=== PATIENT | male | born 1960 | race Caucasian/White ===

== ENCOUNTER 2020-08-31 11:49 | Emergency (ER) | payer MEDICARE ==
[2020-08-31 12:16] VITALS: BP 128/83; PULSE 67
--- NOTE | 2020-08-31 12:50 | EDM.PDOC ---
ED HPI GENERAL MEDICAL PROBLEM - General Chief Complaint: Lower Extremity Injury/Pain Stated Complaint: PAIN LT SIDE BETWEEN LEG Time Seen by Provider: 08/31/20 12:48 Source of Information: Reports: Patient, Family, RN Notes Reviewed History Limitations: Reports: No Limitations - History of Present Illness INITIAL COMMENTS - FREE TEXT/NARRATIVE: 60-year-old gentleman presents emergency department with a complaint of left hip pain, he states he fell about a month ago was hoping it would improve but it continues to have pain and difficulty ambulating he has not been evaluated thus far no numbness and tingling in the toes - Related Data Allergies Allergy/AdvReac Type Severity Reaction Status Date / Time No Known Allergies Allergy Verified 08/31/20 12:15 Home Meds: Home Meds FLUoxetine [PROzac] 40 tab PO DAILY 08/30/14 [History] [place] Carbonate [[place] Carbonate ER] 2 tab PO DAILY 08/30/14 [History] Past Medical History HEENT History: Reports: Impaired Vision Cardiovascular History: Reports: Hypertension Gastrointestinal History: Reports: Chronic Diarrhea Musculoskeletal History: Reports: Gout Psychiatric History: Reports: Anxiety, Depression Dermatologic History: Reports: None - Infectious Disease History Infectious Disease History: Reports: Measles - Past Surgical History Head Surgeries/Procedures: Reports: None Cardiovascular Surgical History: Reports: None Musculoskeletal Surgical History: Reports: Other (See Below) Other Musculoskeletal Surgeries/Procedures:: right wrist Dermatological Surgical History: Reports: Skin Graft Social & Family History - Tobacco Use Tobacco Use Status *Q: Former Tobacco User Used Tobacco, but Quit: Yes Month/Year Tobacco Last Used: 06/2020 Second Hand Smoke Exposure: No - Caffeine Use Caffeine Use: Reports: Soda - Recreational Drug Use Recreational Drug Use: No Review of Systems - Review of Systems Review Of Systems: See Below Musculoskeletal: Reports: Joint Pain (Left hip pain) ED EXAM, GENERAL - Physical Exam Exam: See Below Free Text/Narrative:: Examination left hip I do not appreciate any erythema there is no edema there is no bruising noted he does have difficulty with ambulation I cannot elicit a point tenderness there is no particular tenderness to flexion extension rotation the tenderness seems to be greatest when he bears weight Exam Limited By: No Limitations General Appearance: Alert, WD/WN, No Apparent Distress Course - Vital Signs Last Recorded V/S: Last Vital Signs Temp 97.5 F 08/31/20 12:26 Pulse 67 08/31/20 12:26 Resp 16 08/31/20 12:26 BP 128/83 08/31/20 12:26 Pulse Ox 97 08/31/20 12:26 Departure - Departure Time of Disposition: 16:00 Disposition: Home, Self-Care 01 Condition: Fair Clinical Impression: Closed fracture of single pubic ramus of pelvis Qualifiers: Encounter type: initial encounter Laterality: left Qualified Code(s): S32.592A - Other specified fracture of left pubis, initial encounter for closed fracture - Discharge Information Instructions: Simple Pelvic Fracture, Adult Referrals: Tiffanie Son PA [Primary Care Provider] - Forms: ED Department Discharge Additional Instructions: Use Tylenol or Motrin as needed for baseline pain control, use hydrocodone for breakthrough pain, recommend contacting your primary care physician for referral to physical therapy and walker, call return to the emergency department worsening symptoms Sepsis Event Note (ED) - Evaluation Sepsis Screening Result: No Definite Risk - Focused Exam Vital Signs: Vital Signs Temp Pulse Resp BP Pulse Ox 08/31/20 12:26 97.5 F 67 16 128/83 97 08/31/20 12:15 97.5 F 67 16 128/83 97 - Assessment/Plan Plan: Assessment Acuity = acute Site and laterality = pelvic rami fracture healing left Etiology = secondary to fall Manifestations = none Location of injury = Home Lab values = x-ray was questionable CT scanning confirms a fracture described above Plan Prescription written for hydrocodone 5/325 1 tab p.o. 3 times daily as needed total #10 follow-up primary care request referral to physical therapy for further evaluation This note was dictated using [employer] voice recognition software please call with any questions on syntax or grammar.
--- NOTE | 2020-08-31 13:22 | CR ---
Hip Min 2V or 3V w Pelvis Lt CLINICAL HISTORY: Pain FINDINGS: There is some mild irregularity in the inferior pubic ramus on the left with some minimal cortical disruption. This is felt to represent a nondisplaced the fracture. Chronology is uncertain. Joint spaces are maintained. Articular surfaces are smooth. IMPRESSION: Previous nondisplaced fracture of the left inferior pubic ramus of uncertain chronology. Acute fracture is not excluded. Hips appear intact
--- NOTE | 2020-08-31 15:44 | CT ---
Hip wo Cont Lt CLINICAL HISTORY: Pain PROCEDURE: Thin section axial tomographic images are obtained through the left hip joint without IV contrast enhancement. The sagittal and coronal images were reconstructed. FINDINGS: There is some mild osteoarthritic change with subcortical cyst formation in the left acetabulum. Femur appears intact. Joint spaces are maintained. There is a nondisplaced fracture through the left inferior pubic ramus. There appears to be some callus formation remain in the pelvis appears intact. No soft tissue abnormality is identified. Pelvic side jarquin are clear IMPRESSION: Previous nondisplaced fracture through the left inferior pubic ramus with some callus formation. Patient states a history of previous trauma approximately 1 month ago. Findings would correlate with this chronology
== END 2020-08-31 16:07 | disposition home or self-care (01) ==
LOC: JP.ED 11:49
DX: S32.592A Other specified fracture of left pubis, initial encounter for closed fracture (principal); I10 Essential (primary) hypertension; Z79.899 Other long term (current) drug therapy; Z87.891 Personal history of nicotine dependence; W19.XXXA Unspecified fall, initial encounter
CPT/HCPCS: 73502-26-LT; 73502-LT; 73700-26-LT; 73700-LT; 99283; 99284-25

== ENCOUNTER 2021-02-09 21:01 | Emergency (ER) | payer OTHER, MEDICARE ==
--- NOTE | 2021-02-09 21:19 | EDM.PDOC ---
ED HPI GENERAL MEDICAL PROBLEM - General Chief Complaint: Head Injury Stated Complaint: HEAD LACERATION Time Seen by Provider: 02/09/21 21:13 Source of Information: Reports: Patient History Limitations: Reports: No Limitations - History of Present Illness INITIAL COMMENTS - FREE TEXT/NARRATIVE: Kailash is a 60-year-old male brought in by his son for evaluation of a head injury. EMS had called to alert us that the patient apparently had fallen in his yard and struck his head on a rock. He has significant abrasions and laceration to his left forehead and eyebrow. EMS reported the patient was fairly obstinate and refused to go by ambulance so his son brought him in for evaluation. He denies any loss of consciousness. He is not acting his baseline at this time according to the son. He denies any nausea or vomiting, vision changes, numbness or tingling, or weakness. Patient did walk-in. - Related Data Allergies Allergy/AdvReac Type Severity Reaction Status Date / Time No Known Allergies Allergy Verified 02/09/21 21:14 Home Meds: Home Meds FLUoxetine [PROzac] 40 tab PO DAILY 08/30/14 [History] [place] Carbonate [[place] Carbonate ER] 2 tab PO DAILY 08/30/14 [History] Past Medical History HEENT History: Reports: Impaired Vision Cardiovascular History: Reports: Hypertension Gastrointestinal History: Reports: Chronic Diarrhea Musculoskeletal History: Reports: Gout Psychiatric History: Reports: Anxiety, Depression Dermatologic History: Reports: None - Infectious Disease History Infectious Disease History: Reports: Measles - Past Surgical History Head Surgeries/Procedures: Reports: None Cardiovascular Surgical History: Reports: None Musculoskeletal Surgical History: Reports: Other (See Below) Other Musculoskeletal Surgeries/Procedures:: right wrist Dermatological Surgical History: Reports: Skin Graft Social & Family History - Caffeine Use Caffeine Use: Reports: Soda ED ROS GENERAL - Review of Systems Review Of Systems: See Below Constitutional: Reports: No Symptoms HEENT: Reports: Other (Abrasions and lacerations to the left forehead, eyebrow, and lower eyelid.) Respiratory: Reports: No Symptoms Cardiovascular: Reports: No Symptoms Endocrine: Reports: No Symptoms GI/Abdominal: Reports: No Symptoms : Reports: No Symptoms Musculoskeletal: Reports: No Symptoms Skin: Reports: Wound (Abrasions and laceration to the left forehead, eyebrow, and eyelid.) Neurological: Reports: Confusion, Other (According to the son, the patient is acting a little off.). Denies: Headache, Difficulty Walking Psychiatric: Reports: No Symptoms Hematologic/Lymphatic: Reports: No Symptoms Immunologic: Reports: No Symptoms ED EXAM, HEAD INJURY - Physical Exam Exam: See Below Exam Limited By: No Limitations General Appearance: Alert, Mild Distress Head: Facial Abrasions (Left forehead), Facial Ecchymosis (Left periorbital space), Facial Lacerations (Left eyebrow and eyelid), Facial Tenderness (Left forehead and eyebrow) Eyes: Bilateral Eye: EOMI, PERRL Ears: Normal External Exam, Normal Canal, Hearing Grossly Normal, Normal TMs Nose: Normal Inspection, Normal Mucousa, No Blood Throat/Mouth: Normal Inspection, Normal Lips, Normal Oropharynx, Normal Voice, Other (Very poor dentition) Neck: Non-Tender, Full Range of Motion. No: Tender Lateral, Tender Midline Respiratory: No Respiratory Distress, Lungs Clear, Normal Breath Sounds Cardiovascular: Normal Peripheral Pulses, Regular Rate, Rhythm, No Murmur Back Exam: Normal Inspection, Full Range of Motion Extremities: Normal Inspection, Normal Range of Motion, Normal Capillary Refill Neurologic: substance abuse therapist II-XII nml As Tested, No Motor/Sensory Deficits, Alert, Depressed Affect - Jaskaran Coma Score Best Eye Response (Jaskaran): (4) Open Spontaneously Best Verbal Response (Mccarley): (5) Oriented Best Motor Response (Mccarley): (6) Obeys Commands Mccarley Total: 15 ED LACERATION/WOUND & BEN PROC - Laceration/Wound Repair Left Face Lac/wound length in cm: 2.1 Appearance: Superficial Distal NVT: Neuro & Vascular Intact Exploration/Debridement/Repair: Wound Explored, In a Bloodless Field, Explored to Base Closed with: Wound Adhesive Complications: No Course - Vital Signs Last Recorded V/S: Last Vital Signs Temp 36.4 C 02/09/21 21:18 Pulse 87 02/09/21 21:45 Resp 11 L 02/09/21 21:45 BP 128/85 02/09/21 21:45 Pulse Ox 99 02/09/21 21:45 - Orders/Labs/Meds Orders: Active Orders 24 hr Category Date Time Status Head wo Cont [CT] Stat Exams 02/09/21 21:13 Taken Labs: Laboratory Tests 02/09/21 02/09/2121 Range/Units 21:23 21:23 21:23 WBC 6.5 (4.5-11.0) K/uL RBC 4.21 L (4.30-5.90) M/uL Hgb 13.9 (12.0-15.0) g/dL Hct 40.8 (40.0-54.0) % MCV 97 (80-98) fL MCH 33 H (27-31) pg MCHC 34 (32-36) % Plt Count 208 (150-400) K/uL Neut % (Auto) 58.9 (36-66) % Lymph % (Auto) 30.2 (24-44) % Warrick % (Auto) 4.5 (2-6) % Eos % (Auto) 5.6 H (2-4) % Baso % (Auto) 0.8 (0-1) % PT 10.9 (9.5-12.0) sec INR 1.00 (0.80-1.20) APTT 24.5 L (27.0-36.0) sec Sodium 140 (140-148) mmol/L Potassium 3.8 (3.6-5.2) mmol/L Chloride 105 (100-108) mmol/L Carbon Dioxide 22 (21-32) mmol/L Anion Gap 13.2 (5.0-14.0) mmol/L BUN 13 (7-18) mg/dL Creatinine 1.2 (0.8-1.3) mg/dL Est Cr Clr Drug Dosing 58.69 mL/min Estimated GFR (MDRD) > 60 (>60) Glucose 96 (74-106) mg/dL Calcium 8.6 (8.5-10.1) mg/dL Total Bilirubin 1.0 D (0.2-1.0) mg/dL AST 41 H D (15-37) U/L ALT 47 D (12-78) U/L Alkaline Phosphatase 173 H (46-116) U/L Total Protein 7.4 (6.4-8.2) g/dL Albumin 3.4 (3.4-5.0) g/dL Globulin 4.0 H (2.3-3.5) g/dL Albumin/Globulin Ratio 0.9 L (1.2-2.2) Ethyl Alcohol mg/dL 02/09/21 Range/Units 21:23 WBC (4.5-11.0) K/uL RBC (4.30-5.90) M/uL Hgb (12.0-15.0) g/dL Hct (40.0-54.0) % MCV (80-98) fL MCH (27-31) pg MCHC (32-36) % Plt Count (150-400) K/uL Neut % (Auto) (36-66) % Lymph % (Auto) (24-44) % Warrick % (Auto) (2-6) % Eos % (Auto) (2-4) % Baso % (Auto) (0-1) % PT (9.5-12.0) sec INR (0.80-1.20) APTT (27.0-36.0) sec Sodium (140-148) mmol/L Potassium (3.6-5.2) mmol/L Chloride (100-108) mmol/L Carbon Dioxide (21-32) mmol/L Anion Gap (5.0-14.0) mmol/L BUN (7-18) mg/dL Creatinine (0.8-1.3) mg/dL Est Cr Clr Drug Dosing mL/min Estimated GFR (MDRD) (>60) Glucose (74-106) mg/dL Calcium (8.5-10.1) mg/dL Total Bilirubin (0.2-1.0) mg/dL AST (15-37) U/L ALT (12-78) U/L Alkaline Phosphatase (46-116) U/L Total Protein (6.4-8.2) g/dL Albumin (3.4-5.0) g/dL Globulin (2.3-3.5) g/dL Albumin/Globulin Ratio (1.2-2.2) Ethyl Alcohol 315 mg/dL - Radiology Interpretation Free Text/Narrative:: I reviewed the patient's CT of the head without contrast showing no acute intracranial abnormalities including hemorrhage, mass, or midline shift. There are no acute cranial abnormalities including fracture. The patient does have chronic left sphenoid sinusitis. - Re-Assessments/Exams Free Text/Narrative Re-Assessment/Exam: 02/09/21 22:[address] of the head without contrast. There is no evidence for acute intracranial hemorrhage, mass, or midline shift. There is no cranial abnormalities identified. I reviewed the patient's labs showing a leukocyte count of 6.5, hemoglobin of 13.9, hematocrit of 40.8, and platelet count of 208,000. Patient's PT is 10.9 with an INR of 1.0. The PTT is 24.5. The comprehensive metabolic panel is significant for sodium 140, potassium 3.8, chloride of 105, bicarbonate of 22, BUN of 13 with a creatinine 1.2. Glucose is 96. AST is mildly elevated at 41 with an ALT of 47. Patient's ethanol level is 315. The wounds to the face are one small gouge above the eyebrow that is not actively bleeding. We will seal this with Dermabond. 02/09/21 22:17 Tdap was boosted today. Departure - Departure Time of Disposition: 22:15 Disposition: Home, Self-Care 01 Clinical Impression: Head injury Qualifiers: Encounter type: initial encounter Qualified Code(s): S09.90XA - Unspecified injury of head, initial encounter Alcohol intoxication Qualifiers: Complication of substance-induced condition: uncomplicated Qualified Code(s): F10.920 - Alcohol use, unspecified with intoxication, uncomplicated Abrasion of forehead Qualifiers: Encounter type: initial encounter Qualified Code(s): S00.81XA - Abrasion of other part of head, initial encounter Abrasion of eyelid, left Qualifiers: Encounter type: initial encounter Qualified Code(s): S00.212A - Abrasion of left eyelid and periocular area, initial encounter - Discharge Information Instructions: Head Injury, Adult, Abrasion, [id number] Referrals: PCP,None [Primary Care Provider] - Forms: ED Department Discharge Care Plan Goals: Your work-up is unremarkable for any focal neurologic findings. You did sustain a deep abrasion to the left forehead and lower eyelid. These were closed with Dermabond. The Dermabond will wear off just like a scab. Please do not pick at it. You may shower and submerge her head in water as needed. You likely did suffer a mild concussion from the injury. Try to take it easy over the next day or 2 until the headache is gone. In addition, you are significantly intoxicated which may have contributed to your fall. Return to the ED should you start developing any worsening of a headache, nausea or vomiting, or sudden onset of weakness or numbness. Sepsis Event Note (ED) - Focused Exam Vital Signs: Vital Signs Temp Pulse Resp BP Pulse Ox 02/09/21 21:45 87 11 L 128/85 99 02/09/21 21:18 36.4 C 95 17 143/101 H 99 02/09/21 21:15 36.4 C 95 17 143/101 H 99 - Problem List & Annotations (1) Abrasion of eyelid, left SNOMED Code(s): 76512066195959189 Code(s): S00.212A - ABRASION OF LEFT EYELID AND PERIOCULAR AREA, INIT ENCNTR Status: Acute Priority: High Current Visit: Yes Qualifiers: Encounter type: initial encounter Qualified Code(s): S00.212A - Abrasion of left eyelid and periocular area, initial encounter (2) Abrasion of forehead SNOMED Code(s): 489869256 Code(s): S00.81XA - ABRASION OF OTHER PART OF HEAD, INITIAL ENCOUNTER Status: Acute Priority: High Current Visit: Yes Qualifiers: Encounter type: initial encounter Qualified Code(s): S00.81XA - Abrasion of other part of head, initial encounter (3) Alcohol intoxication SNOMED Code(s): 30053303 Code(s): F10.929 - ALCOHOL USE, UNSPECIFIED WITH INTOXICATION, UNSPECIFIED Status: Acute Priority: High Current Visit: Yes Qualifiers: Complication of substance-induced condition: uncomplicated Qualified Code (s): F10.920 - Alcohol use, unspecified with intoxication, uncomplicated (4) Head injury SNOMED Code(s): 51991623 Code(s): S09.90XA - UNSPECIFIED INJURY OF HEAD, INITIAL ENCOUNTER Status: Acute Priority: High Current Visit: Yes Qualifiers: Encounter type: initial encounter Qualified Code(s): S09.90XA - Unspecified injury of head, initial encounter - Problem List Review Problem List Initiated/Reviewed/Updated: Yes - My Orders Last 24 Hours: My Active Orders 02/09/21 21:13 Head wo Cont [CT] Stat - Assessment/Plan Last 24 Hours: My Active Orders 02/09/21 21:13 Head wo Cont [CT] Stat
[2021-02-09 21:45] VITALS: BP 128/85; PULSE 87
[2021-02-09] MEDS ORDERED: Diphtheria,Pertussis(Acell),Tetanus Vaccine 0.5 ML Syringe IM ONE (22:18)
--- NOTE | 2021-02-09 22:19 | CRLCT ---
For Patients: As a result of the Century Cures Act, medical imaging exams and procedure reports are released immediately into your electronic medical record. You may view this report before your referring provider. If you have questions, please contact your health care provider. INDICATION: Pain after head injury. ETOH. COMPARISON: 10/08/2013. TECHNIQUE: CT examination of the head was performed with 3 and 2 mm thick axial and 2 mm thick coronal and sagittal sections without intravenous contrast. Images were obtained from the vertex of the skull through the skull base, and I examined the images with the brain and bone windows. Please note that all CT scans at this facility use dose modulation, iterative reconstruction, and/or weight-based dosing when appropriate to reduce radiation dose to as low as reasonably achievable. FINDINGS: : The brain is normal in appearance for the patient`s age on today`s study, with no sign of mass lesion, mass effect, hemorrhage, or edema. There is increased dilatation of the ventricles, now moderate, also with increased dilatation of the sulci, now mild. The findings are that of progressive central atrophy consistent with the patient`s age. The visualized portions of the orbits are normal in appearance. There is prominent opacification of the visualized superior right maxillary sinus, not included on the previous study. The findings are that of severe acute or chronic sinusitis. There is mild mucosal thickening of the superior portion of the left maxillary sinus, in a region not included on the previous study. This is consistent with mild chronic sinusitis. The rest of the visualized portions of the paranasal sinuses and mastoids are clear. The osseous structures are normal in their appearance with no sign of abnormality in the skull base or calvarium. IMPRESSION: No sign of closed head injury. Progressive central atrophy, now moderate, consistent with patient`s age. Severe right maxillary sinusitis, acute versus chronic. Mild chronic left maxillary sinusitis. Please note that all CT scans at this facility use dose modulation, iterative reconstruction, and/or weight-based dosing when appropriate to reduce radiation dose to as low as reasonably achievable. Dictated by Fam Jenkins MD @ 02/09/2021 10:16:[address] Fam eJnkins @ Feb 09 2021 10:16PM
== END 2021-02-09 22:40 | disposition home or self-care (01) ==
LOC: JP.ED 21:01
DX: S01.112A Laceration without foreign body of left eyelid and periocular area, initial encounter (principal); F10.129 Alcohol abuse with intoxication, unspecified; I10 Essential (primary) hypertension; Z23 Encounter for immunization; W18.09XA Striking against other object with subsequent fall, initial encounter
CPT/HCPCS: 12011; 36415; 70450; 80053; 80307; 85025; 85610; 85730; 90471; 90715; 99284-25

== ENCOUNTER 2021-04-08 18:53 | Emergency (ER) | payer MEDICARE, OTHER ==
[2021-04-08 19:21] VITALS: BP 95/69; PULSE 95
--- NOTE | 2021-04-08 19:53 | EDM.PDOC ---
ED HPI GENERAL MEDICAL PROBLEM - General Chief Complaint: Respiratory Problem Stated Complaint: COVID SYMPTOMS Time Seen by Provider: 04/08/21 19:22 Source of Information: Reports: Patient, RN Notes Reviewed History Limitations: Reports: No Limitations - History of Present Illness INITIAL COMMENTS - FREE TEXT/NARRATIVE: 60-year-old gentleman presents emergency department day complaint of shortness of breath symptoms, he was recently diagnosed with COVID-19 approximately 5 days ago. States he had have symptoms about 4 days prior feeling short of breath cough yellow sputum production. He is mainly here for symptomatic relief. - Related Data Allergies Allergy/AdvReac Type Severity Reaction Status Date / Time No Known Allergies Allergy Verified 02/09/21 21:14 Home Meds: Home Meds FLUoxetine [PROzac] 40 tab PO DAILY 08/30/14 [History] [place] Carbonate [[place] Carbonate ER] 2 tab PO DAILY 08/30/14 [History] Albuterol Sulfate [Albuterol Sulfate Hfa] 18 gm IH Q4H PRN #1 [email or web address] 04/08/21 [Rx] Benzonatate [Tessalon Perle] 100 mg PO TID PRN #15 capsule 04/08/21 [Rx] Past Medical History HEENT History: Reports: Impaired Vision Cardiovascular History: Reports: Hypertension Gastrointestinal History: Reports: Chronic Diarrhea Musculoskeletal History: Reports: Fracture, Gout Neurological History: Reports: Concussion, Head Trauma Psychiatric History: Reports: Anxiety, Bipolar, Depression, PTSD Dermatologic History: Reports: None - Infectious Disease History Infectious Disease History: Reports: Measles, Novel Coronavirus - Past Surgical History Head Surgeries/Procedures: Reports: None Cardiovascular Surgical History: Reports: None Musculoskeletal Surgical History: Reports: Other (See Below) Other Musculoskeletal Surgeries/Procedures:: right wrist Dermatological Surgical History: Reports: Skin Graft Social & Family History - Family History Family Medical History: No Pertinent Family History - Tobacco Use Tobacco Use Status *Q: Never Tobacco User - Caffeine Use Caffeine Use: Reports: None - Recreational Drug Use Recreational Drug Use: No ED ROS GENERAL - Review of Systems Review Of Systems: See Below Constitutional: Reports: Fever, Chills, Fatigue HEENT: Reports: No Symptoms Respiratory: Reports: Shortness of Breath, Cough, Sputum Cardiovascular: Reports: Dyspnea on Exertion GI/Abdominal: Reports: No Symptoms ED EXAM, GENERAL - Physical Exam Exam: See Below Exam Limited By: No Limitations General Appearance: Alert, WD/WN, No Apparent Distress Respiratory/Chest: No Respiratory Distress, Lungs Clear, Normal Breath Sounds, No Accessory Muscle Use, Chest Non-Tender Cardiovascular: Regular Rate, Rhythm, No Murmur Course - Vital Signs Last Recorded V/S: Last Vital Signs Temp 97.8 F 04/08/21 19:20 Pulse 95 04/08/21 19:20 Resp 16 04/08/21 19:20 BP 95/69 04/08/21 19:20 Pulse Ox 95 04/08/21 19:20 Departure - Departure Time of Disposition: 19:52 Disposition: Home, Self-Care 01 Condition: Fair Clinical Impression: COVID-19 - Discharge Information Prescriptions: Albuterol Sulfate [Albuterol Sulfate Hfa] 18 gm IH Q4H PRN #1 [email or web address] PRN Reason: Dyspnea Benzonatate [Tessalon Perle] 100 mg PO TID PRN #15 capsule PRN Reason: Cough Instructions: COVID-19 Frequently Asked Questions, COVID-19: How to Protect Yourself and Others - [facility] Referrals: PCP,None [Primary Care Provider] - Additional Instructions: Continue with symptomatic care, please followup with your primary care provider in 3-5 days if not better, please call return to the emergency department with worsening of symptoms. Sepsis Event Note (ED) - Evaluation Sepsis Screening Result: No Definite Risk - Focused Exam Vital Signs: Vital Signs Temp Pulse Resp BP Pulse Ox 04/08/21 19:20 97.8 F 95 16 95/69 95 - Assessment/Plan Plan: Assessment Acuity = acute Site and laterality = viral syndrome Etiology = COVID-19 Manifestations = dyspnea, cough, sputum Location of injury = Home Lab values = none Plan Because his oxygen saturation was greater than 90% elected to treat empirically with symptomatic relief albuterol inhaler for shortness of breath and Tessalon Perles for cough he is to return to the emergency department if he becomes hypoxic, he declined monoclonal antibody therapy treatment This note was dictated using [employer] voice recognition software please call with any questions on syntax or grammar.
== END 2021-04-08 20:10 | disposition home or self-care (01) ==
LOC: JP.ED 18:53
DX: U07.1 COVID-19 (principal); I10 Essential (primary) hypertension; M10.9 Gout, unspecified; Z79.899 Other long term (current) drug therapy
CPT/HCPCS: 99284

== ENCOUNTER 2022-12-27 11:37 | Inpatient (IN) | payer OTHER, MEDICARE ==
[2022-12-27] MEDS ORDERED: HYDROmorphone 0.5 MG/0.5 ML Syringe IVPUSH ONE (12:30)
[2022-12-27] MEDS ORDERED: Sodium Chloride 0.9% 1,000 ML IV SCH (12:30)
[2022-12-27] MEDS ORDERED: Ondansetron 4 MG/2 ML SDV IVPUSH ONE (12:30)
[2022-12-27 12:47] LABS: HEMATOCRIT 41.7 % (38.4-49.7); HEMOGLOBIN 14.4 g/dL (12.9-16.9); MEAN CORPUSCULAR HEMOGLOBIN 34.3 pg (31.6-35.5); MEAN CORPUSCULAR HGB CONC 34.5 g/dL (31.6-35.5); MEAN CORPUSCULAR VOLUME 99.3 fL (81.4-99.0); RED BLOOD CELL COUNT 4.2 M/uL (4.14-5.76); WHITE BLOOD CELL COUNT,WBC 6.2 K/uL (3.2-11.0)
[2022-12-27 13:07] LABS: INR 1.1
[2022-12-27 13:14] LABS: A/G RATIO 0.8 (1.2-2.2); ALANINE AMINOTRANSFERASE,ALT 37 U/L (12-78); ALBUMIN 3.6 g/dL (3.4-5.0); ALKALINE PHOSPHATASE 111 U/L (46-116); ASPARTATE AMNIOTRANSFERASE,AST 32 U/L (15-37); BLOOD UREA NITROGEN,BUN 17 mg/dL (7-18); CALCIUM 9.1 mg/dL (8.5-10.1); CARBON DIOXIDE,CO2 21 mmol/L (21-32); CHLORIDE,CL 106 mmol/L (100-108); CREATININE 1.1 mg/dL (0.8-1.3); EST CRCL DRUG DOSING (CG) 63.64 mL/min; ESTIMATED GFR 76 mL/min (>60); GLUCOSE RANDOM 100 mg/dL (74-106); LIPASE 131 U/L (73-393); SODIUM,NA 135 mmol/L (140-148); TROPONIN I HIGH SENSITIVITY < 4.0 pg/mL (<=60.3)
[2022-12-27] MEDS ORDERED: Iopamidol 612 MG/ML 100 ML Bottle IV PRN (13:41)
[2022-12-27] MEDS ORDERED: Sodium Chloride 0.9% 10 ML SDV FLUSH ONE (13:41)
[2022-12-27] MEDS ORDERED: Sodium Chloride 0.9% 100 ML IV SCH (13:45)
[2022-12-27 14:01] LABS: APPEARANCE,URINE CLEAR (CLEAR); BILIRUBIN,URINE NEGATIVE (NEGATIVE); COLOR,URINE YELLOW (YELLOW); GLUCOSE,URINE NEGATIVE (NEGATIVE); KETONES,URINE NEGATIVE (NEGATIVE); LEUKOCYTE ESTERASE,URINE NEGATIVE (NEGATIVE); NITRITE,URINE NEGATIVE (NEGATIVE); OCCULT BLOOD,URINE NEGATIVE (NEGATIVE); PH,URINE 5.5 (5.0-8.0); PROTEIN,URINE NEGATIVE (NEGATIVE); UROBILINOGEN,URINE 0.2 EU/dL (0.2-1.0)
[2022-12-27 14:10] LABS: AMORPHOUS SEDIMENT,URINE NOT SEEN; AMPHETAMINES SCREEN, URINE NEGATIVE (NEGATIVE); BACTERIA,URINE FEW; EPITHELIAL CELLS,URINE NOT SEEN; METHAMPHETAMINES SCREEN, URINE NEGATIVE (NEGATIVE); MUCUS,URINE FEW; RBC,URINE 0-5 (0-5); THC SCREEN,URINE 50 NG/ML PRESUMPTIVE POSITIVE (NEGATIVE); WBC,URINE 0-5 (0-5)
[2022-12-27 14:11] LABS: BARBITURATE SCREEN,URINE NEGATIVE (NEGATIVE); BENZODIAZEPINES SCREEN,URINE NEGATIVE (NEGATIVE); METHADONE SCREEN, URINE NEGATIVE (NEGATIVE); OXYCODONE SCREEN,URINE NEGATIVE (NEGATIVE); PROPOXYPHENE SCREEN,URINE NEGATIVE (NEGATIVE)
[2022-12-27] MEDS ORDERED: Ondansetron 4 MG/2 ML SDV IV PRN (16:40)
[2022-12-27] MEDS ORDERED: Ondansetron 4 MG Tab.DIS PO PRN (16:40)
[2022-12-27] MEDS ORDERED: Acetaminophen 325 MG Tab PO PRN (16:40)
[2022-12-27] MEDS ORDERED: Magnesium Hydroxide 400 MG/5 ML Susp 30 ML Cup PO PRN (16:40)
[2022-12-27] MEDS ORDERED: Pantoprazole 40 MG Vial IV SCH (17:00)
[2022-12-27 17:22] LABS: MAGNESIUM 2.1 mg/dL (1.8-2.4); PHOSPHORUS 2.8 mg/dL (2.5-4.9)
[2022-12-27] MEDS: Dextrose 5%-0.45% NaCl 1,000 ML IV SCH (17:48)
[2022-12-27] MEDS: HYDROmorphone 0.5 MG/0.5 ML Syringe IVPUSH PRN (20:03)
[2022-12-27] MEDS ORDERED: Melatonin 3 MG Tab PO SCH (21:00)
[2022-12-28] MEDS: Dextrose 5%-0.45% NaCl 1,000 ML IV SCH (04:08)
[2022-12-28 04:51] LABS: HEMOGLOBIN 12.8 g/dL (12.9-16.9); MEAN CORPUSCULAR HEMOGLOBIN 34.1 pg (31.6-35.5); MEAN CORPUSCULAR HGB CONC 32.8 g/dL (31.6-35.5); RED BLOOD CELL COUNT 3.75 M/uL (4.14-5.76); WHITE BLOOD CELL COUNT,WBC 6.3 K/uL (3.2-11.0)
[2022-12-28 05:03] LABS: ANION GAP 8.7 mmol/L (5.0-14.0); CALCIUM 8.6 mg/dL (8.5-10.1); CREATININE 1.1 mg/dL (0.8-1.3); EST CRCL DRUG DOSING (CG) 63.64 mL/min; POTASSIUM,K 3.7 mmol/L (3.6-5.2)
[2022-12-28] MEDS: HYDROmorphone 0.5 MG/0.5 ML Syringe IVPUSH PRN (05:03)
[2022-12-28 05:20] LABS: HEMOGLOBIN A1C 5.2 % (4.5-6.2)
[2022-12-28] MEDS ORDERED: fentaNYL 100 MCG/2 ML SDV ONE (07:33)
[2022-12-28] MEDS ORDERED: Midazolam 1 MG/ML 2 ML SDV ONE (07:33)
[2022-12-28] MEDS ORDERED: Propofol 200 MG/20 ML SDV ONE (07:33)
[2022-12-28] MEDS ORDERED: Pantoprazole 40 MG Vial IVPUSH ONE (08:02)
[2022-12-28 08:58] VITALS: PULSE 76
[2022-12-28 10:50] VITALS: BP 110/75
== END 2022-12-28 10:55 | disposition home or self-care (01) | DRG 392 ==
LOC: JP.ED 11:37 → JP.MS 16:40
PROVIDERS: ADMIT Internal Medicine; ATTEND Internal Medicine
PROC: 0DC48ZZ Extirpation of Matter from Esophagogastric Junction, Via Natural or Artificial Opening Endoscopic (ICD-10-PCS; principal; 2022-12-28)
PROC: 0DB48ZX Excision of Esophagogastric Junction, Via Natural or Artificial Opening Endoscopic, Diagnostic (ICD-10-PCS; 2022-12-28)
DX: K22.2 Esophageal obstruction (principal); H54.7 Unspecified visual loss; E86.0 Dehydration; Z20.822 Contact with and (suspected) exposure to COVID-19; M10.9 Gout, unspecified; F41.9 Anxiety disorder, unspecified; E66.9 Obesity, unspecified; R13.10 Dysphagia, unspecified; F12.90 Cannabis use, unspecified, uncomplicated; I10 Essential (primary) hypertension; Z86.16 Personal history of COVID-19; F31.9 Bipolar disorder, unspecified; F43.10 Post-traumatic stress disorder, unspecified; Z98.890 Other specified postprocedural states; Z79.899 Other long term (current) drug therapy
CPT/HCPCS: 36415; 74177 ×2; 80053; 80305; 80307; 81001; 83605; 83690; 83735; 84100; 84145; 84484; 85027; 85379; 85610; 87635; 93005; J1170; J2405; J3490; J7030; Q9967; 80048; 83036; 85730; 88305; 88312; 96361; 96374; 96375; 99222; 99238; 99285-25; C9113; J2250; J2704; J3010; J7042; Q0162; U0002

== ENCOUNTER 2023-01-10 13:09 | Emergency (ER) | payer OTHER, MEDICARE ==
[2023-01-10 13:30] VITALS: BP 132/91; PULSE 74
== END 2023-01-10 14:38 | disposition home or self-care (01) ==
LOC: JP.ED 13:09
DX: R20.2 Paresthesia of skin (principal); I10 Essential (primary) hypertension; Z86.16 Personal history of COVID-19
CPT/HCPCS: 99283

== ENCOUNTER 2024-08-20 14:48 | Emergency (ER) | payer OTHER ==
[2024-08-20 15:06] LABS: BASOPHILS ABSOLUTE AUTO 0.05 K/uL (0.00-0.10); BASOPHILS PERCENT AUTO 0.6 % (0.1-1.3); EOSINOPHILS ABSOLUTE AUTO 0.24 K/uL (0.00-0.40); EOSINOPHILS PERCENT AUTO 2.8 % (0.0-5.4); HEMATOCRIT 39.1 % (38.4-49.7); HEMOGLOBIN 13.8 g/dL (12.9-16.9); IMMATURE GRAN PERCENT AUTO 0.2 % (0.0-0.7); LYMPHOCYTES ABSOLUTE AUTO 2.71 K/uL (0.8-3.3); LYMPHOCYTES PERCENT AUTO 31.7 % (11.4-47.7); MEAN CORPUSCULAR HEMOGLOBIN 34.2 pg (31.6-35.5); MEAN CORPUSCULAR HGB CONC 35.3 g/dL (31.6-35.5); MONOCYTES ABSOLUTE AUTO 0.49 K/uL (0.20-0.90); MONOCYTES PERCENT AUTO 5.7 % (3.3-12.6); NEUTROPHILS ABSOLUTE AUTO 5.03 K/uL (1.0-7.6); PLATELET COUNT,PLT 154 K/uL (130-375); RED BLOOD CELL COUNT 4.03 M/uL (4.14-5.76); WHITE BLOOD CELL COUNT,WBC 8.5 K/uL (3.2-11.0)
[2024-08-20 15:09] LABS: IMMATURE GRAN ABSOLUTE AUTO 0.02 K/uL (0.00-0.23)
[2024-08-20] MEDS ORDERED: Sodium Chloride 0.9% 500 ML IV ONE (15:31)
[2024-08-20] MEDS: HYDROmorphone 1 MG/ML Syringe IVPUSH ONE ×3 (15:42→20:54)
[2024-08-20] MEDS: Sodium Chloride 0.9% 1,000 ML IV ONE (15:46)
== END 2024-08-20 21:06 ==
LOC: JP.ED 14:48
DX: S82.141A Displaced bicondylar fracture of right tibia, initial encounter for closed fracture (principal); I10 Essential (primary) hypertension; Z86.16 Personal history of COVID-19; W22.8XXA Striking against or struck by other objects, initial encounter; Y93.89 Activity, other specified
CPT/HCPCS: 29505; 36415; 73562; 85025; 96361; 96374; 96376; 99285; J1171; J7030